=== PATIENT | male | born 1955 | race Caucasian/White ===

== ENCOUNTER 2020-08-24 01:49 | Outpatient (CLI) | payer BC, SELFPAY ==
[2020-08-24 19:52] LABS: SARS-CoV-2 RNA PCR Negative
== END 2020-08-24 01:50 | disposition home or self-care (01) ==
LOC: ANHCOVIDDT 01:49
PROVIDERS: PCP Internal Medicine; Visit Provider Internal Medicine Gastroenterology
DX: Z01.812 Encounter for preprocedural laboratory examination (principal); Z20.828 Contact with and (suspected) exposure to other viral communicable diseases
CPT/HCPCS: 87635; C9803; U0003

== ENCOUNTER 2020-08-27 00:22 | Day surgery (SDC) | payer BC, SELFPAY ==
[2020-08-21 09:32] VITALS: BMI 28.0
[2020-08-27 10:19] VITALS: BP 137/82; PULSE 63; RESP 15; TEMP 36.6; O2SAT 98; BMI 28.0
[2020-08-27] MEDS: LACTATED RINGERS 1,000 ML 150 ML IV CONT (10:27)
--- NOTE | 2020-08-27 11:10 | WPDANESEPPF ---
Anes - Initial Pre Proc Eval Procedure: Operation Date: 08/27/20 11:30 Proposed Procedures p Screening Colonoscopy - Eduin Quiroz DO Date/Time: 08/27/20 11:10 Surgeon: Eduin Quiroz DO Pre Op Diagnosis: Neoplasm Screening Patient Data Age: 64 Gender: M Height: 5 ft 9 in Weight: 86.1 kg Last Vital Signs Temp 97.9 F 08/27/20 10:19 Pulse 63 08/27/20 10:19 Resp 15 08/27/20 10:19 BP 137/82 08/27/20 10:19 Pulse Ox 98 08/27/20 10:19 Allergies Allergy/AdvReac Type Severity Reaction Status Date / Time No Known Allergies Verified 08/27/20 10:15 Home Medications Medication Instructions Recorded Confirmed Type aspirin 81 mg tablet,delayed 81 mg PO DAILY 11/18/19 08/27/20 History release atorvastatin 80 mg tablet 80 mg PO DAILY #90 tablet 11/18/19 08/27/20 Rx lisinopril 10 mg tablet 10 mg PO DAILY #90 tablet 11/18/19 08/27/20 Rx metoprolol succinate 25 mg 25 mg PO DAILY #90 tablet 11/18/19 08/27/20 Rx tablet,extended release 24 hr terazosin 2 mg capsule 2 mg PO DAILY #90 cap 11/18/19 08/27/20 Rx Patient hx anesthesia problems: none Family hx anesthesia problems: none PMFSH Family History Family History (Updated 05/09/16 @ 23:19 by DOCTOR UNKNOWN) Father Malignant neoplasm of prostate Family history of diabetes mellitus in first degree relative Sibling Malignant neoplasm of prostate Mother Family history of heart disease in male family member before age 55 Other Family history of cardiovascular disease Family history of malignant neoplasm Hypertension Social History Social History Smoking status: Never smoker Alcohol intake: current Drinks per week: 4 Substance use: never Substance use type: does not use Living arrangements: alone Spiritual care concerns: No Anes - Eval Final PreProcedure Day of Procedure 08/27/20 11:10 Patient weight: normal Heart: regular rate and rhythm Lungs: clear to auscultation Airway: Mallampati scale class II Neurological: alert and oriented Last oral intake: >/= 8 hours ASA classification: II Emergent: no Anesthetic plan: proceed Anesthesia type and monitoring: general GIVS and standard monitoring Informed Consent: The patient's anesthetic plan and its attendant risks and benefits were discussed with the patient/family/POA. Questions were solicited and answers provided to the satisfaction of the patient/family/POA.
--- NOTE | 2020-08-27 12:31 | P.HP_ITS ---
H&P: HPI History of Present Illness Date/Time: 08/27/20 12:31 Chief complaint: Neoplasm Screening Narrative: This very pleasant gentleman is here for colonoscopy. This very pleasant gentleman seen in consultation at the request of the primary physician. Impression: Screening colonoscopy. HTN. HLD. Recommendation: Colonoscopy. History: This very pleasant gentleman is negative GI review systems. He is here for screening colonoscopy. Physical examination: General: very pleasant patient in no acute distress. HEENT: Head was normocephalic sclerae is clear mouth without masses neck was supple. Heart: Rate rhythm regular without S3 or S4. Lungs: CTA. Abdomen: Soft with no guarding or rigidity. Bowel sounds were active. Neurologic: Cranial nerves 2 through 12 intact. No focal defects. No clonus. Musculoskeletal system: Revealed no joint tenderness or swelling no muscle atrophy. Extremities: Reveal no significant edema. Skin: Warm and dry with normal turgor. Mental status: intact. Patient is alert and oriented. Review of Systems Review of Systems: All systems reviewed & are unremarkable except as noted in HPI and below [facility] Family History Family History (Updated 05/09/16 @ 23:19 by DOCTOR UNKNOWN) Father Malignant neoplasm of prostate Family history of diabetes mellitus in first degree relative Sibling Malignant neoplasm of prostate Mother Family history of heart disease in male family member before age 55 Other Family history of cardiovascular disease Family history of malignant neoplasm Hypertension Social History Social History Smoking status: Never smoker Alcohol intake: current Drinks per week: 4 Substance use: never Substance use type: does not use Living arrangements: alone Spiritual care concerns: No Meds Home Medications and Allergies Home Medications Medication Instructions Recorded Confirmed Type aspirin 81 mg tablet,delayed 81 mg PO DAILY 11/18/19 08/27/20 History release atorvastatin 80 mg tablet 80 mg PO DAILY #90 tablet 11/18/19 08/27/20 Rx lisinopril 10 mg tablet 10 mg PO DAILY #90 tablet 11/18/19 08/27/20 Rx metoprolol succinate 25 mg 25 mg PO DAILY #90 tablet 11/18/19 08/27/20 Rx tablet,extended release 24 hr terazosin 2 mg capsule 2 mg PO DAILY #90 cap 11/18/19 08/27/20 Rx Allergies Allergy/AdvReac Type Severity Reaction Status Date / Time No Known Allergies Verified 08/27/20 10:15 Vital Signs Vital Signs - 24 hr 08/27/20 10:19 Temperature 36.6 C Pulse Rate 63 Respiratory Rate 15 Blood Pressure 137/82 Pulse Oximetry 98
[2020-08-27 12:52] VITALS: BP 132/88; PULSE 65; RESP 22; O2SAT 100
[2020-08-27 13:02] VITALS: BP 148/98; PULSE 55; RESP 15; O2SAT 100
[2020-08-27 13:12] VITALS: BP 171/102; PULSE 53; RESP 15; O2SAT 100
== END 2020-08-27 13:26 | disposition home or self-care (01) ==
PROVIDERS: PCP Internal Medicine; Visit Provider Internal Medicine Gastroenterology
PROC: 0DJD8ZZ Inspection of Lower Intestinal Tract, Via Natural or Artificial Opening Endoscopic (ICD-10-PCS; CPT 45378; principal; 2020-08-27 11:30)
DX: Z12.11 Encounter for screening for malignant neoplasm of colon (principal); K64.8 Other hemorrhoids; I10 Essential (primary) hypertension; E78.5 Hyperlipidemia, unspecified; Z79.82 Long term (current) use of aspirin
CPT/HCPCS: 45378; J2704; J7120